=== PATIENT | male | born 1970 | race Two or more races ===

== ENCOUNTER 2019-10-17 00:17 | Emergency (ER) | payer SELFPAY ==
[~2019-10-17] VITALS: Ht 167.6 cm; Wt 60.0 kg
[2019-10-17 00:30] VITALS: BP 160/108
--- NOTE | 2019-10-17 00:48 | PHYS DOC ---
Past Medical History Attending Signature I have participated in the care of this patient and I have reviewed and agree with all pertinent clinical information above including history, exam, and recommendations. (MIKHAIL SHERMAN MD) Adult General Chief Complaint Chief Complaint: SORE THROAT HPI HPI Patient is a 49 year old male who presents with 3 days. Denies fever, nausea, vomiting, nasal congestion, cough, abdominal pain, headache, dizziness, chest pain, shortness of air. Patient rates his pain 9 out of 10. He states he feels very swollen. (GEORGIE BYRNES APRN) Review of Systems Review of Systems HENT: Denies nasal congestion. + sore throat [] All other systems were reviewed and found to be within normal limits, except as documented in this note. (GEORGIE BYRNES APRN) Physical Exam Physical Exam Constitutional: Well developed, well nourished, no acute distress, non-toxic appearance. [] HENT: Normocephalic, atraumatic, bilateral external ears normal, oropharynx moist, no oral exudates, nose normal. Bilateral tonsils 2+ with redness.[] Eyes: PERRLA, EOMI, conjunctiva normal, no discharge. [] Neck: Normal range of motion, no tenderness, supple, no stridor. [] Cardiovascular:Heart rate regular rhythm, no murmur [] Lungs & Thorax: Bilateral breath sounds clear to auscultation [] Abdomen: Bowel sounds normal, soft, no tenderness, no masses, no pulsatile masses. [] Skin: Warm, dry, no erythema, no rash. [] Back: No tenderness, no CVA tenderness. [] Extremities: No tenderness, no cyanosis, no clubbing, ROM intact, no edema. [] Neurologic: Alert and oriented X 3, normal motor function, normal sensory function, no focal deficits noted. [] Psychologic: Affect normal, judgement normal, mood normal. [] (GEORGIE BYRNES APRN) EKG EKG [] (GEORGIE BYRNES APRN) Radiology/Procedures Radiology/Procedures [] (GEORGIE BYRNES APRN) Course & Med Decision Making Course & Med Decision Making Pertinent Labs and Imaging studies reviewed. (See chart for details) Alert and oriented. Speaks in full clear sentences. Patient is eating and drinking appropriately. Ambulatory with a steady gait. Throat is reddened and bilateral tonsils are 2+ edema without exudates. Patient denies any other symptoms. Uvula midline. Rapid strep is negative. Due to the way the patient throat looks upon e xamination, I will place the patient on antibiotics and a medrol dose pack. [] (GEORGIE BYRNES APRN) Dragon Disclaimer Dragon Disclaimer This electronic medical record was generated, in whole or in part, using a voice recognition dictation system. (GEORGIE BYRNES APRN) Departure Departure Impression: Primary Impression: Sore throat Disposition: HOME, SELF-CARE Condition: STABLE Referrals: NO PCP (PCP) Patient Instructions: Sore Throat, [id number] Additional Instructions: Follow up with primary care provider. Take medication with food and as prescribed. Drink plenty of fluids. Take Tylenol for pain. Scripts Amoxicillin (AMOXICILLIN) 500 Mg Capsule 1 CAP PO BID, #20 CAP Prov: GEORGIE BYRNES APRN 10/17/19 Methylprednisolone (MEDROL) 4 Mg Tab.ds.pk 1 PKG PO UD, #1 PKG Prov: GEORGIE BYRNES APRN 10/17/19 GEORGIE BYRNES APRN Oct 17, 2019 00:48 MIKHAIL SHERMAN MD Oct 17, 2019 01:35
[2019-10-17] MEDS ORDERED: AMOX500C PO (01:01)
[2019-10-17] MEDS ORDERED: METH4TAB2 PO (01:01)
== END 2019-10-17 01:22 | disposition home or self-care (01) ==
LOC: ER 00:17
DX: J02.9 Acute pharyngitis, unspecified (principal); L53.9 Erythematous condition, unspecified
CPT/HCPCS: 87070; 87880; 99283